=== PATIENT | female | born 1990 | race Caucasian/White ===

== ENCOUNTER 2020-05-20 05:44 | Emergency (ER) | payer OTHER ==
[~2020-05-20] VITALS: Ht 149.9 cm; Wt 61.0 kg
[2020-05-20 06:27] LABS: IMMATURE GRANULOCYTES 0.3 % (0.0-5.0); MEAN CORPUSCULAR HGB 25.3 pG CALC (26.0-32.0); NEUT# 5.48 thou/uL (2.00-7.15); RED BLOOD COUNT 3.72 mill/uL (4.20-5.60); RED CELL DISTRI WIDTH 14.5 % (11.5-15.5)
[2020-05-20 06:36] LABS: HEMATOCRIT 29.4 % (37.0-47.0); HEMOGLOBIN 9.4 g/dl (12.0-16.0)
--- NOTE | 2020-05-20 06:38 | NUR ---
BREATHING TREATMENT GIVEN.
[2020-05-20 07:04] LABS: ALBUMIN 2.6 g/dL (3.2-5.0); ALKALINE PHOSPHATASE 142 u/l (38-126); ANION GAP 8 (6-22 (CALC)); BILIRUBIN, TOTAL 0.6 mg/dL (0.0-1.4); BUN 6 mg/dL (7-17); BUN/CREATININE RATIO 11 (12-20 (CALC)); CARBON DIOXIDE 22 mmol/l (22-30); CHLORIDE 109 mmol/l (95-108); CREATININE 0.5 mg/dL (0.5-1.0); GFR > 60 ML/MIN (>=60 (CALC)); GFR FOR AFR.AMER. > 60 ML/MIN (>=60 (CALC)); POTASSIUM 3.9 mmol/l (3.5-5.1); SGOT/AST 26 u/l (14-36); SODIUM 136 mmol/l (137-146); TOTAL PROTEIN 5.3 g/dL (6.3-8.2)
[2020-05-20] MEDS ORDERED: PROAIR HFA108 MCG/AC PO (07:18)
[2020-05-20] MEDS ORDERED: PREDNISONE50 MG PO (07:18)
[2020-05-20] MEDS ORDERED: IPRATROPIUM BR0.03 % (07:32)
[2020-05-20 07:40] VITALS: BP 136/69
== END 2020-05-20 07:54 | disposition home or self-care (01) ==
LOC: ED 05:44
PROVIDERS: Family Medicine
DX: O99.519 Diseases of the respiratory system complicating pregnancy, unspecified trimester (principal); J45.901 Unspecified asthma with (acute) exacerbation; Z3A.00 Weeks of gestation of pregnancy not specified; Z20.828 Contact with and (suspected) exposure to other viral communicable diseases

== ENCOUNTER 2020-12-27 22:34 | Emergency (ER) | payer OTHER ==
[~2020-12-27] VITALS: Ht 149.9 cm; Wt 52.0 kg
[~2020-12-27 22:34] MED LIST: IPRATROPIUM BR0.03 %; PREDNISONE50 MG PO; PROAIR HFA108 MCG/AC PO
[2020-12-27] MEDS ORDERED: PAXIL40 MG PO (23:13)
[2020-12-27] MEDS ORDERED: LORAZEPAM0.5 MG PO (23:14)
[2020-12-27] MEDS ORDERED: BACTRIM DS1 TAB PO (23:18)
[2020-12-27] MEDS ORDERED: TRAMADOL HYDROC50 M1 PO (23:18)
[2020-12-28 03:15] VITALS: BP 124/76
== END 2020-12-28 07:07 | disposition home or self-care (01) ==
LOC: ED 22:34
DX: N76.4 Abscess of vulva (principal)

== ENCOUNTER 2021-07-17 05:20 | Emergency (ER) | payer OTHER ==
[~2021-07-17] VITALS: Ht 149.9 cm; Wt 52.0 kg
[~2021-07-17 05:20] MED LIST changes: +BACTRIM DS1 TAB PO; +LORAZEPAM0.5 MG PO; +PAXIL40 MG PO; +TRAMADOL HYDROC50 M1 PO
[2021-07-17] MEDS ORDERED: SYMBICORT 80-4.5MCG (05:45)
[2021-07-17] MEDS ORDERED: LORAZEPAM0.5 MG PO (05:49)
[2021-07-17] MEDS ORDERED: WELLBUTRIN XL150 MG (05:49)
[2021-07-17 05:50] VITALS: BP 124/82
[2021-07-17 05:56] LABS: IMMATURE GRANULOCYTES 0.3 % (0.0-5.0); MEAN CORPUSCULAR HGB CONC 32.1 g/dL CAL (32.0-36.0); NEUT# 3.52 thou/uL (2.00-7.15); RED BLOOD COUNT 4.04 mill/uL (4.20-5.60); RED CELL DISTRI WIDTH 15.3 % (11.5-15.5)
[2021-07-17 06:03] LABS: HEMATOCRIT 36.4 % (37.0-47.0); HEMOGLOBIN 11.7 g/dl (12.0-16.0)
[2021-07-17 06:04] LABS: MEAN CELL VOLUME 90.1 fL CALC (80.0-100.0)
[2021-07-17 06:13] LABS: ANION GAP 12 (6-22 (CALC)); BILIRUBIN, TOTAL 0.6 mg/dL (0.0-1.4); BUN 15 mg/dL (7-17); BUN/CREATININE RATIO 21 (12-20 (CALC)); CARBON DIOXIDE 26 mmol/l (22-30); CHLORIDE 105 mmol/l (95-108); CREATININE 0.7 mg/dL (0.5-1.0); GFR > 60 ML/MIN (>=60 (CALC)); GFR FOR AFR.AMER. > 60 ML/MIN (>=60 (CALC)); POTASSIUM 3.8 mmol/l (3.5-5.1); SGOT/AST 26 u/l (14-36); SODIUM 139 mmol/l (137-146)
[2021-07-17 06:14] LABS: ALKALINE PHOSPHATASE 42 u/l (38-126)
[2021-07-17] MEDS ORDERED: ALBUTEROL SUL0.083 % IN (06:40)
[2021-07-17] MEDS ORDERED: PREDNISONE50 MG PO (06:40)
== END 2021-07-17 07:02 | disposition home or self-care (01) ==
LOC: ED 05:20
PROVIDERS: Family Medicine
DX: J45.901 Unspecified asthma with (acute) exacerbation (principal); F32.A Depression, unspecified; F41.9 Anxiety disorder, unspecified

== ENCOUNTER 2021-11-02 11:05 | Emergency (ER) | payer OTHER ==
[~2021-11-02] VITALS: Ht 149.9 cm; Wt 51.0 kg
[~2021-11-02 11:05] MED LIST changes: +ALBUTEROL SUL0.083 % IN; +SYMBICORT 80-4.5MCG; +WELLBUTRIN XL150 MG
[2021-11-02 11:48] LABS: HEMATOCRIT 41.5 % (37.0-47.0); IMMATURE GRANULOCYTES 0.1 % (0.0-5.0); MEAN CELL VOLUME 87.7 fL CALC (80.0-100.0); MEAN CORPUSCULAR HGB 27.5 pG CALC (26.0-32.0); MEAN CORPUSCULAR HGB CONC 31.3 g/dL CAL (32.0-36.0); NEUT# 5.88 thou/uL (2.00-7.15); RED BLOOD COUNT 4.73 mill/uL (4.20-5.60); RED CELL DISTRI WIDTH 14.6 % (11.5-15.5)
[2021-11-02 11:55] LABS: URINE BILIRUBIN - DIPSTICK NEGATIVE (NEGATIVE); URINE BLOOD DIPSTICK LARGE (NEGATIVE); URINE COLOR YELLOW; URINE GLUCOSE - DIPSTICK NEGATIVE (NEGATIVE); URINE KETONE NEGATIVE (NEGATIVE); URINE LEUK ESTERASE NEGATIVE (NEGATIVE); URINE NITRITE - DIPSTICK NEGATIVE (Negative); URINE PH 5.5 (4.5-8.0); URINE PROTEIN - DIPSTICK TRACE mg/dL (NEG-TRACE); URINE SPECIFIC GRAVITY >=1.030; URINE UROBILINOGEN - DIPSTICK 0.2 E.U./dL (0.2)
[2021-11-02 11:59] LABS: URINE RBC >100 RBC/hpf (0-5); URINE SQUAMOUS EPITHELIAL CELL FEW EPI/hpf (0-FEW); URINE WBC 0-2 WBC/hpf (0-5)
[2021-11-02 12:01] LABS: ALBUMIN 4.6 g/dL (3.2-5.0); ALKALINE PHOSPHATASE 54 u/l (38-126); ANION GAP 13 (6-22 (CALC)); BUN 17 mg/dL (7-17); BUN/CREATININE RATIO 22 (12-20 (CALC)); CARBON DIOXIDE 24 mmol/l (22-30); CHLORIDE 104 mmol/l (95-108); CREATININE 0.8 mg/dL (0.5-1.0); GFR > 60 ML/MIN (>=60 (CALC)); GFR FOR AFR.AMER. > 60 ML/MIN (>=60 (CALC)); LIPASE 106 u/l (23-300); SGOT/AST 22 u/l (14-36); SODIUM 137 mmol/l (137-146)
[2021-11-02 12:06] LABS: BILIRUBIN, TOTAL 1.7 mg/dL (0.0-1.4)
[2021-11-02 12:40] VITALS: BP 120/60
[2021-11-02 13:15] VITALS: BP 106/66
[2021-11-02 13:30] VITALS: BP 110/67
[2021-11-02 13:45] VITALS: BP 104/60
[2021-11-02 14:00] VITALS: BP 108/64
[2021-11-02] MEDS ORDERED: ONDANSETRON4 MG PO (14:45)
[2021-11-02] MEDS ORDERED: PROTONIX40 M2 PO (14:45)
[2021-11-02] MEDS ORDERED: MIRALAX17 GM/SCOO PO (14:45)
[2021-11-02 15:01] VITALS: BP 120/70
== END 2021-11-02 15:09 | disposition home or self-care (01) ==
LOC: ED 11:05
PROVIDERS: Family Medicine
DX: K59.00 Constipation, unspecified (principal); K80.50 Calculus of bile duct without cholangitis or cholecystitis without obstruction; J45.909 Unspecified asthma, uncomplicated; F32.A Depression, unspecified; F41.9 Anxiety disorder, unspecified
CPT/HCPCS: Q9967

== ENCOUNTER 2021-11-19 13:14 | Emergency (ER) | payer OTHER ==
[~2021-11-19] VITALS: Ht 149.9 cm; Wt 59.5 kg
[~2021-11-19 13:14] MED LIST changes: +MIRALAX17 GM/SCOO PO; +ONDANSETRON4 MG PO; +PROTONIX40 M2 PO
[2021-11-19 13:25] VITALS: BP 111/76
[2021-11-19 13:30] VITALS: BP 112/76
[2021-11-19 14:00] VITALS: BP 109/76
[2021-11-19 14:30] VITALS: BP 115/64
[2021-11-19 14:54] LABS: URINE BILIRUBIN - DIPSTICK NEGATIVE (NEGATIVE); URINE BLOOD DIPSTICK LARGE (NEGATIVE); URINE COLOR YELLOW; URINE GLUCOSE - DIPSTICK NEGATIVE (NEGATIVE); URINE KETONE NEGATIVE (NEGATIVE); URINE PROTEIN - DIPSTICK TRACE mg/dL (NEG-TRACE); URINE SPECIFIC GRAVITY 1.025; URINE UROBILINOGEN - DIPSTICK 0.2 E.U./dL (0.2)
[2021-11-19 14:54] LABS: HEMATOCRIT 37.2 % (37.0-47.0); IMMATURE GRANULOCYTES 0.2 % (0.0-5.0); MEAN CELL VOLUME 87.5 fL CALC (80.0-100.0); MEAN CORPUSCULAR HGB 28.2 pG CALC (26.0-32.0); MEAN CORPUSCULAR HGB CONC 32.3 g/dL CAL (32.0-36.0); NEUT# 3.57 thou/uL (2.00-7.15); RED BLOOD COUNT 4.25 mill/uL (4.20-5.60); RED CELL DISTRI WIDTH 14.9 % (11.5-15.5)
[2021-11-19 14:55] LABS: URINE LEUK ESTERASE SMALL (NEGATIVE); URINE NITRITE - DIPSTICK NEGATIVE (Negative)
[2021-11-19] MEDS ORDERED: NITROFURANTN100 M2 PO (14:58)
[2021-11-19 15:00] VITALS: BP 110/74
[2021-11-19 15:06] LABS: URINE SQUAMOUS EPITHELIAL CELL FEW EPI/hpf (0-FEW); URINE WBC 20-50 WBC/hpf (0-5)
[2021-11-19 15:12] LABS: ALBUMIN 4.5 g/dL (3.2-5.0); ALKALINE PHOSPHATASE 47 u/l (38-126); ANION GAP 12 (6-22 (CALC)); BILIRUBIN, TOTAL 2.1 mg/dL (0.0-1.4); BUN 11 mg/dL (7-17); BUN/CREATININE RATIO 14 (12-20 (CALC)); CARBON DIOXIDE 25 mmol/l (22-30); CHLORIDE 105 mmol/l (95-108); CREATININE 0.8 mg/dL (0.5-1.0); GFR FOR AFR.AMER. > 60 ML/MIN (>=60 (CALC)); GFR OTHER RACES > 60 ML/MIN (>=60 (CALC)); LIPASE 72 u/l (23-300); POTASSIUM 4.2 mmol/l (3.5-5.1); SGOT/AST 26 u/l (14-36); SODIUM 138 mmol/l (137-146); TOTAL PROTEIN 7.6 g/dL (6.3-8.2)
[2021-11-19 15:33] VITALS: BP 110/74
== END 2021-11-19 16:09 | disposition home or self-care (01) ==
LOC: ED 13:14
PROVIDERS: Family Medicine
DX: N39.0 Urinary tract infection, site not specified (principal); K82.9 Disease of gallbladder, unspecified; J45.909 Unspecified asthma, uncomplicated; F41.9 Anxiety disorder, unspecified; F32.A Depression, unspecified; B96.20 Unspecified Escherichia coli [E. coli] as the cause of diseases classified elsewhere; Z20.822 Contact with and (suspected) exposure to COVID-19

== ENCOUNTER 2021-12-26 11:59 | Emergency (ER) | payer OTHER ==
[2021-12-26] VITALS (9 sets, daily range): BP systolic 91–119; BP diastolic 56–73
[~2021-12-26] VITALS: Ht 149.9 cm; Wt 52.3 kg
[~2021-12-26 11:59] MED LIST changes: +NITROFURANTN100 M2 PO
[2021-12-26 13:52] LABS: URINE BLOOD DIPSTICK LARGE (NEGATIVE); URINE GLUCOSE - DIPSTICK NEGATIVE (NEGATIVE); URINE KETONE NEGATIVE (NEGATIVE); URINE LEUK ESTERASE NEGATIVE (NEGATIVE); URINE PH 5.5 (4.5-8.0); URINE PROTEIN - DIPSTICK NEGATIVE (NEG-TRACE); URINE SPECIFIC GRAVITY >=1.030; URINE UROBILINOGEN - DIPSTICK 0.2 E.U./dL (0.2)
[2021-12-26 13:55] LABS: HEMATOCRIT 38.2 % (37.0-47.0); HEMOGLOBIN 12.2 g/dl (12.0-16.0); IMMATURE GRANULOCYTES 0.3 % (0.0-5.0); MEAN CELL VOLUME 87.2 fL CALC (80.0-100.0); MEAN CORPUSCULAR HGB 27.9 pG CALC (26.0-32.0); MEAN CORPUSCULAR HGB CONC 31.9 g/dL CAL (32.0-36.0); NEUT# 2.14 thou/uL (2.00-7.15); RED BLOOD COUNT 4.38 mill/uL (4.20-5.60); RED CELL DISTRI WIDTH 14.6 % (11.5-15.5); URINE BILIRUBIN - DIPSTICK SMALL (NEGATIVE); URINE NITRITE - DIPSTICK NEGATIVE (Negative)
[2021-12-26 13:56] LABS: URINE COLOR DK. YELLOW; URINE RBC 25-50 RBC/hpf (0-5)
[2021-12-26 14:12] LABS: ALBUMIN 4.2 g/dL (3.2-5.0); ALKALINE PHOSPHATASE 55 u/l (38-126); AMYLASE 53 u/l (30-110); ANION GAP 12 (6-22 (CALC)); BUN 12 mg/dL (7-17); BUN/CREATININE RATIO 17 (12-20 (CALC)); CARBON DIOXIDE 24 mmol/l (22-30); CHLORIDE 106 mmol/l (95-108); CREATININE 0.7 mg/dL (0.5-1.0); GFR FOR AFR.AMER. > 60 ML/MIN (>=60 (CALC)); GFR OTHER RACES > 60 ML/MIN (>=60 (CALC)); LIPASE 82 u/l (23-300); POTASSIUM 3.8 mmol/l (3.5-5.1); SGOT/AST 23 u/l (14-36); SODIUM 138 mmol/l (137-146)
[2021-12-26 14:14] LABS: BILIRUBIN, TOTAL 1.2 mg/dL (0.0-1.4)
[2021-12-26] MEDS ORDERED: TRAMADOL HCL50 MG PO (16:01)
[2021-12-26] MEDS ORDERED: ONDANSETRON4 MG PO (16:28)
== END 2021-12-26 17:07 | disposition home or self-care (01) ==
LOC: ED 11:59
PROVIDERS: Nurse Practitioner
DX: K80.20 Calculus of gallbladder without cholecystitis without obstruction (principal); J45.909 Unspecified asthma, uncomplicated; F41.9 Anxiety disorder, unspecified; F32.A Depression, unspecified

== ENCOUNTER 2022-05-24 12:32 | Emergency (ER) | payer OTHER ==
[~2022-05-24] VITALS: Ht 149.9 cm; Wt 55.0 kg
[~2022-05-24 12:32] MED LIST changes: +TRAMADOL HCL50 MG PO
[2022-05-24 12:38] VITALS: BP 125/77
[2022-05-24] MEDS ORDERED: ATIVAN1 MG PO (12:41)
[2022-05-24] MEDS ORDERED: WELLBUTRIN XL150 MG PO (12:41)
[2022-05-24 12:45] VITALS: BP 140/84
[2022-05-24 13:00] VITALS: BP 114/82
[2022-05-24 13:15] VITALS: BP 124/89
[2022-05-24 13:31] VITALS: BP 123/95
[2022-05-24 14:40] VITALS: BP 123/95
== END 2022-05-24 14:44 | disposition home or self-care (01) ==
LOC: ED 12:32
DX: Z04.89 Encounter for examination and observation for other specified reasons (principal); J45.909 Unspecified asthma, uncomplicated; F32.A Depression, unspecified; F41.9 Anxiety disorder, unspecified; Z79.899 Other long term (current) drug therapy